=== PATIENT | female | born 1995 | race Caucasian/White ===

== ENCOUNTER → 2022-12-04 12:21 | Outpatient (BNVA) | payer BC, SELFPAY | PROVIDERS: Family Provider Nurse Practitioner; PCP Nurse Practitioner; Visit Provider Nurse Practitioner | DX: F41.8 Other specified anxiety disorders (principal); K64.9 Unspecified hemorrhoids; Z13.6 Encounter for screening for cardiovascular disorders; Z30.09 Encounter for other general counseling and advice on contraception | CPT/HCPCS: 80053; 80061; 84443 ==

== ENCOUNTER → 2023-11-19 11:08 | Outpatient (BNVA) | payer BC, SELFPAY | PROVIDERS: Family Provider Nurse Practitioner; PCP Nurse Practitioner; Visit Provider Nurse Practitioner | DX: Z12.4 Encounter for screening for malignant neoplasm of cervix (principal); F41.8 Other specified anxiety disorders; Z13.6 Encounter for screening for cardiovascular disorders; J45.909 Unspecified asthma, uncomplicated; Z30.09 Encounter for other general counseling and advice on contraception | CPT/HCPCS: 80053; 80061; 84443; 85025; 88175 ==

== ENCOUNTER → 2025-02-17 11:45 | Outpatient (BNVA) | payer BC, SELFPAY | PROVIDERS: Family Provider Nurse Practitioner; PCP Nurse Practitioner; Visit Provider Nurse Practitioner | DX: F41.8 Other specified anxiety disorders (principal) | CPT/HCPCS: 84439; 84443; 84481 ==

== ENCOUNTER 2025-02-23 15:48 | Outpatient (CLI) | payer BC, SELFPAY ==
--- NOTE | 2025-02-23 16:00 | US_ITS ---
WS: [id number] THYROID ULTRASOUND HISTORY: E04.9 - Nontoxic goiter, unspecified COMPARISON: None available. Right lobe: 1.2 cm x 1.6 cm x 4.6 cm (w x ap x l). Volume: 4.2 cm3. Normal size and echotexture. No significant are dominant nodules are present. Left lobe: 1.3 cm x 1.1 cm x 4.2 cm (w x ap x l). Volume: 2.9 cm3. Normal size and echotexture. No significant or dominant nodules are present. Isthmus: 0.3 cm. US/US thyroid [id number] IMPRESSION: Normal thyroid ultrasound.
== END 2025-02-23 15:49 | disposition home or self-care (01) ==
LOC: RAD 15:51
PROVIDERS: PCP Nurse Practitioner; Visit Provider Nurse Practitioner
DX: E04.9 Nontoxic goiter, unspecified (principal)
CPT/HCPCS: 76536